=== PATIENT | female | born 1950 | race Caucasian/White ===

== ENCOUNTER → 2017-03-29 | Outpatient (CLI) | payer OTHER | LOC: BMCIMAGING 08:28 | PROVIDERS: ATTEND Orthopaedic Surgery | DX: M17.12 Unilateral primary osteoarthritis, left knee (principal); M25.462 Effusion, left knee; M25.552 Pain in left hip ==

== ENCOUNTER 2017-07-09 14:00 | Inpatient (IN) | payer OTHER ==
--- NOTE | 2017-09-17 06:43 | PDHPUP ---
History & Physical Update H&P update statement: This history and physical update is based on an assessment of the patient which was completed after admission or registration (within 24 hours), but prior to the surgery/procedure. H&P update: no change in patient's condition since H&P completed
--- NOTE | 2017-09-17 06:44 | PDIAF ---
- Diagnosis Diagnosis: left hip djd Code Status: Full Code - Medication Management Discharge Medications: Medications to Continue on Transfer Herbals/Supplements -Info Only 1 ea PO DAILY 02/02/15 [Last Taken 02/20/15] Multivitamins [Tab-A-Jf] 1 each PO DAILY 02/02/15 [Last Taken 02/20/15] Discharge Medications: Refer to the Discharge Home Medication list for PRN reason. - Orders Services needed: Physical Therapy Isolation Type: None Activity/Weight Bearing Restrictions: wbat. anterior hip precautions. dressing changes. may shower without bandage. no soaking or immersion. follow up at two weeks [facility]. seek attn for increasing pain, cp, sob, leg swelling or pain, drainage - Follow Up Care Current Providers and Referrals: Doctor Not,On Staff, MD [Primary Care Provider] -
[2017-09-17] MEDS ORDERED: TRANEXAMIC ACID IV ONE (10:00)
[2017-09-17] MEDS ORDERED: ROPIVACAINE 0.2% 80 MG, EPINEPHrine 0.2 MG, KETOROLAC TROMETHAMINE 30 MG, morphINE 10 M... IU ONE (10:00)
[2017-09-17] MEDS ORDERED: BUPI/epINEPH/KETOROLAC/morphINE IU ONE (10:00)
[2017-09-17] MEDS ORDERED: NS IV ONE (10:00)
[2017-09-17] MEDS ORDERED: ACETAMINOPHEN 325 MG TAB PO ONE (10:07)
[2017-09-17] MEDS ORDERED: FAMOTIDINE 20 MG TAB PO ONE (10:07)
[2017-09-17] MEDS ORDERED: ceFAZolin 2 GM/SWFI 2 GM/20 ML SYR IVP ONE (10:07)
[2017-09-17] MEDS ORDERED: LR 1,000 ML IV ONE (10:08)
[2017-09-17] MEDS ORDERED: LIDOCAINE 1% 2 ML INJ ID PRN (10:08)
[2017-09-17] MEDS ORDERED: CALCIUM CHLORIDE 1 GM/10 ML INJ ONE (10:24)
[2017-09-17] MEDS ORDERED: THROMBIN (BOVINE) 5,000 UNIT VIAL TP ONE (10:24)
[2017-09-17] MEDS ORDERED: ceFAZolin 1 GM/5 ML SYR ONE (10:24)
[2017-09-17] MEDS ORDERED: MIDAZOLAM 2 MG/2 ML VIAL IVP ONE (11:31)
--- NOTE | 2017-09-17 11:33 | PDANEPAE ---
ANE History of Present Illness l hip oa ANE Past Medical History - Cardiovascular History Hx Hypertension: No Hx Arrhythmias: No Hx Chest Pain: No Hx Coronary Artery / Peripheral Vascular Disease: No Hx CHF / Valvular Disease: No Hx Palpitations: Yes Cardiovascular History Comment: INTERMITTENT PALPATATIONS REL TO ANXIETY - Pulmonary History Hx COPD: No Hx Asthma/Reactive Airway Disease: No Hx Recent Upper Respiratory Infection: No Hx Oxygen in Use at Home: No Hx Sleep Apnea: No Sleep Apnea Screening Result - Last Documented: Negative Pulmonary History Comment: ENVIRONMENTAL ALLERGIES. INTERMITTENT COUGH. HX OF NASAL POLYPS - Neurologic History Hx Cerebrovascular Accident: No Hx Seizures: No Hx Dementia: No - Endocrine History Hx Diabetes: No - Renal History Hx Renal Disorders: Yes Renal History Comment: SMALL BLADDER - Liver History Hx Hepatic Disorders: No - Neurological & Psychiatric Hx Hx Neurological and Psychiatric Disorders: No - Cancer History Hx Cancer: No - Congenital Disorder History Hx Congenital Disorders: Yes Congenital History Comment: KNOCKED KNEES - GI History Hx Gastrointestinal Disorders: Yes Gastrointestinal History Comment: GLUTEN FREE DIET. HX OF HEMORRHOIDS - Other Health History Other Health History: OSTEOARTHRITIS. PERM PARTIAL LOWER R - Chronic Pain History Chronic Pain: Yes (LT HIP) - Surgical History Prior Surgeries: DC. RT TOTAL HIP 01/2015. RT TOTAL KNEE 2011. LESLIE. X 2 CARPAL TUNNEL MERCY. TONSILS. TUBAL LIGATION. HEMORRHOIDS ANE Review of Systems Review of Systems: - Exercise capacity METS (RN): 4 METS ANE Patient History - Allergies Allergies/Adverse Reactions: Sulfa (Sulfonamide Antibiotics) Allergy (Severe, Verified 02/02/15 17:32) Hives wheat Allergy (Intermediate, Verified 02/08/15 10:42) GI PROB, BLOATING, DIARRHEA - Home Medications Home Medications: Herbals/Supplements -Info Only 1 ea PO DAILY 02/02/15 [Last Taken 09/11/17] Multivitamins [Tab-A-Jf] 1 each PO DAILY 02/02/15 [Last Taken 09/11/17] - NPO status NPO Since - Liquids (Date): 09/16/17 NPO Since - Liquids (Time): 07:00 NPO Since - Solids (Date): 09/16/17 NPO Since - Solids (Time): 20:30 - Smoking Hx Smoking Status: Former smoker - Family Anes Hx Family Hx Anesthesia Complications: SON- SM TRACHEA, DIFF INTUBATION ANE Labs/Vital Signs - Vital Signs Blood Pressure: 114/73 Heart Rate: 61 Respiratory Rate: 16 O2 Sat (%): 96 Height: 158.75 cm Weight: 66.678 kg ANE Physical Exam - Airway Neck exam: FROM Mallampati Score: Class 2 Mouth exam: normal dental/mouth exam - Pulmonary Pulmonary: no respiratory distress - Cardiovascular Cardiovascular: regular rate and rhythym - ASA Status ASA Status: II ANE Anesthesia Plan Anesthesia Plan: GA w LMA, MAC, spinal
[2017-09-17] MEDS ORDERED: PROPOFOL/EMULSION 500 MG/50 ML BOTTLE IV ONE (11:36)
[2017-09-17] MEDS ORDERED: fentaNYL 100 MCG/2 ML INJ ONE ×2 (12:41→14:35)
[2017-09-17] MEDS ORDERED: DEXAMETHASONE 4 MG/ML VIAL ONE (12:59)
[2017-09-17] MEDS ORDERED: ONDANSETRON 4 MG/2 ML VIAL ONE ×2 (12:59→14:38)
[2017-09-17] MEDS ORDERED: PHENYLEPHRINE HCL 100 MCG/ML SYR ONE (12:59)
[2017-09-17] MEDS ORDERED: NALOXONE HCL 0.4 MG/ML INJ IVP PRN (13:18)
[2017-09-17] MEDS ORDERED: fentaNYL 100 MCG/2 ML INJ IVP PRN (13:18)
[2017-09-17] MEDS ORDERED: HYDROmorphONE/DILAUDID 2 MG/ML INJ IVP PRN (13:18)
[2017-09-17] MEDS ORDERED: PROMETHAZINE HCL 25 MG/ML INJ IVP PRN ×2 (13:18→13:58)
[2017-09-17] MEDS ORDERED: HYDROCODONE/APAP 5/325 TAB PO PRN (13:18)
[2017-09-17] MEDS ORDERED: PROPOFOL 200 MG/20 ML VIAL ONE (13:44)
[2017-09-17] MEDS ORDERED: diphenhydrAMINE 25 MG CAP PO PRN (13:58)
[2017-09-17] MEDS ORDERED: ONDANSETRON DISINTEGRATING 4 MG TAB PO PRN (13:58)
[2017-09-17] MEDS ORDERED: ONDANSETRON 4 MG/2 ML VIAL IVP PRN (13:58)
[2017-09-17] MEDS ORDERED: TEMAZEPAM 15 MG CAP PO PRN (13:58)
[2017-09-17] MEDS ORDERED: METOCLOPRAMIDE 10 MG/2 ML VIAL IVP PRN (13:58)
[2017-09-17] MEDS ORDERED: MAGNESIUM HYDROXIDE 30 ML UDCUP PO PRN (13:58)
[2017-09-17] MEDS ORDERED: DIPHENOXYLATE/ATROPINE LOMOTIL 1 TAB PO PRN (13:58)
[2017-09-17] MEDS ORDERED: POLYETHYLENE GLYCOL 3350 17 GM PKT PO PRN (13:58)
[2017-09-17] MEDS ORDERED: LACTULOSE 20 GM/30 ML UDCUP PO PRN (13:58)
[2017-09-17] MEDS ORDERED: DIAZEPAM 5 MG TAB PO PRN (13:58)
[2017-09-17] MEDS ORDERED: PROMETHAZINE HCL 25 MG SUPPR PR PRN (13:58)
[2017-09-17] MEDS ORDERED: BISACODYL 10 MG SUPP PR PRN (13:58)
[2017-09-17] MEDS ORDERED: ceFAZolin 2 GM/DEXTROSE 100 ML IV SCH (14:00)
[2017-09-17] MEDS ORDERED: LR 1,000 ML IV SCH (14:00)
--- NOTE | 2017-09-17 14:19 | PDMN ---
Medical Necessity Medical necessity: Pt meets IP criteria; [facility] IP only surgery, cpt 35937 L PRISCA
--- NOTE | 2017-09-17 14:22 | POSTANESTH ---
Post Anesthetic Evaluation Cardiovascular Status: Normal, Stable Respiratory Status: Normal, Stable Level of Consciousness/Mental Status: Can Participate in Eval Pain Control: Adequate, Prn Tx Ordered Nausea/Vomiting Control: Adequate, Prn Tx Ordered Complications Possibly Related to Anesthesia: None Noted
[2017-09-17] MEDS: ONDANSETRON 4 MG/2 ML VIAL IVP PRN ×2 (14:40→14:51)
[2017-09-17] MEDS: TRANEXAMIC ACID 650 MG TAB PO SCH ×2 (16:37→21:45)
[2017-09-17] MEDS: ACETAMINOPHEN 325 MG TAB PO SCH (17:55)
[2017-09-17 19:29] VITALS: RESP 16
[2017-09-17] MEDS: oxyCODONE IR 5 MG TAB PO PRN (19:45)
[2017-09-17] MEDS: ceFAZolin 2 GM/SWFI 2 GM/20 ML SYR IVP SCH (19:45)
[2017-09-17] MEDS: ASPIRIN 325 MG TAB PO SCH (21:45)
[2017-09-17] MEDS: SENNOSIDES/DOCUSATE SODIUM TAB PO SCH (21:45)
[2017-09-17] MEDS: FAMOTIDINE 20 MG TAB PO SCH (21:45)
[2017-09-18] MEDS: ACETAMINOPHEN 325 MG TAB PO SCH ×3 (00:14→11:40)
[2017-09-18] MEDS: oxyCODONE IR 5 MG TAB PO PRN ×3 (05:05→13:27)
[2017-09-18] MEDS: ceFAZolin 2 GM/SWFI 2 GM/20 ML SYR IVP SCH (05:05)
[2017-09-18] MEDS: TRANEXAMIC ACID 650 MG TAB PO SCH (05:05)
--- NOTE | 2017-09-18 07:21 | SOAPPROG ---
SOAP Progress Note Assessment/Plan: Assessment: s/p joon Plan: stable dc home wbat dvt precautions 09/18/17 07:19 Subjective: mild lower leg pain no cp or sob Objective: Vital Signs Temp Pulse Resp BP Pulse Ox 36.6 C 76 16 93/69 L 92 09/18/17 04:00 09/18/17 04:00 09/18/17 04:00 09/18/17 04:00 09/18/17 04:00 Laboratory Results 09/18/17 04:31 09/17/17 09/18/17 09/19/17 05:59 05:59 05:59 Intake Total 3120 Output Total 1750 Balance 1370 dressing intact intact pfdfehl toes warm and pink neg homans rafael xrays stable no fx or lucency ICD10 Worksheet Patient Problems: Problems Problem Status Onset Osteoarthritis of hip Acute
--- NOTE | 2017-09-18 07:22 | PDIAF ---
- Diagnosis Diagnosis: left hip djd Code Status: Full Code - Medication Management Discharge Medications: Medications to Continue on Transfer Herbals/Supplements -Info Only 1 ea PO DAILY 02/02/15 [Last Taken 09/11/17] Multivitamins [Multivitamin (*)] 1 each PO DAILY 02/02/15 [Last Taken 09/11/17] Aspirin [Aspirin 325 mg (*)] 325 mg PO DAILY tab 09/18/17 [Last Taken Unknown] Diazepam [Valium 5 MG (*)] 5 mg PO Q6HRS PRN #20 tab 09/18/17 [Last Taken Unknown] oxyCODONE IR [Oxycodone Ir (*)] 5 - 10 mg PO Q3HRS PRN tab 09/18/17 [Last Taken Unknown] Discharge Medications: Refer to the Discharge Home Medication list for PRN reason. - Orders Services needed: Physical Therapy Isolation Type: None Diet Recommendation: no restrictions on diet Diet Texture: Regular Texture Diet Activity/Weight Bearing Restrictions: wbat. anterior hip precautions. dressing changes. may shower without bandage. no soaking or immersion. follow up at two weeks [facility]. seek attn for increasing pain, cp, sob, leg swelling or pain, drainage - Follow Up Care Current Providers and Referrals: Doctor Not,On Staff, [Medical Doctor] - Abdoul Yu MD [Medical Doctor] -
--- NOTE | 2017-09-18 07:36 | GDS ---
[f rep st] DISCHARGE SUMMARY ADMIT DIAGNOSIS: Left hip degenerative joint disease. DISCHARGE DIAGNOSIS: Left hip degenerative joint disease. PROCEDURE: Left total hip arthroplasty. HISTORY OF PRESENT ILLNESS: The patient is a 67-year-old woman who has end-stage arthritis to her le ft hip. Clinical and radiographic are features consistent with this. She has failed all attempts at conservative management. I have recommended total hip replacement. HOSPITAL COURSE: The patient was admitted overnight after uncomplicated total hip arthroplasty. She tolerated the procedure well. She had no complications. At the time of discharge, she is toleratin g oral diet. Pain is well controlled on oral medicines. She is voiding without difficulty. Dressin g is clean, dry, and intact. She has negative Tee's bilaterally. X-rays are stable with anatomic alignment. Serial hematocrit has remained stable. DISCHARGE ACTIVITY: Weightbearing as tolerated. Anterior hip precautions. Daily dressing changes. No soaking or immersion. May shower. SABINO veronica x2 weeks. FOLLOW UP: At 2 weeks. Seek attention for increasing redness, swelling, drainage, discharge. /[id number]/MODL
[2017-09-18] MEDS: SENNOSIDES/DOCUSATE SODIUM TAB PO SCH (08:28)
[2017-09-18] MEDS: ASPIRIN 325 MG TAB PO SCH (08:28)
[2017-09-18] MEDS: FAMOTIDINE 20 MG TAB PO SCH (08:28)
--- NOTE | 2017-09-18 11:47 | ASMTCMCOM ---
CM Note CM Note Notes: Pt medically stable for d/c with [facility]. Orders sent in [employer]. Pt address/phone verified. Date Signed: 09/18/2017 11:47 AM Electronically Signed By:ALEXA Paredes
[2017-09-18 12:52] VITALS: BP 98/61; PULSE 69; TEMP 98.6; O2SAT 97
--- NOTE | 2017-09-19 08:56 | ASDISCHSUM ---
Discharge Information Plan Status:Home with Home Health Medically Cleared to Leave: Discharge Date:09/18/2017 03:44 PM CM D/C Disposition:Home Health Service ADT D/C Disposition:Home, Routine, Self-Care Projected Discharge Date:09/18/2017 11:00 AM Transportation at D/C: Discharge Delay Reason: Follow-Up Date:09/18/2017 11:00 AM Discharge Slot: Final Diagnosis: Placement Information Referral Type:*Home Health Care Services Referral ID:[id number] Provider Name:[facility] [place] Address 1:[address] [place] [address] Address 2: City:[place] Selection Factors: State:[place] Patient Contact Information Contact Name:DESTINEY Relationship:Son Address:[address] Work Phone: City:[place] Alternate Phone: [facility] Code:[place] [address] Email: Financial Information Financial Class:Medicare Primary Plan Desc:MEDICARE INPATIENT Primary Plan Number:[id number] Secondary Plan Desc:[employer] Secondary Plan Number:[id number] Assessment Information [facility] CM Progress Note CM Note CM Note Notes: Pt medically stable for d/c with [facility] Pt address/phone verified. Date Signed: 09/18/2017 11:47 AM Electronically Signed By:ALEXA Paredes Intervention Information
--- NOTE | 2017-09-19 13:52 | GOP ---
[f rep st] OPERATIVE REPORT DATE OF OPERATION: SURGEON: Abdoul Yu MD ACCOUNTS RECEIVABLE ASSISTANT: Bishop Hameed, LOCOMOTIVE REPAIRER DIESEL, MANAGER DIESEL, nursing surgical services director, who is a medical necessity for the entiret y of the case, and Giselle Serrano PA-C PREOPERATIVE DIAGNOSIS: Left hip degenerative joint disease. POSTOPERATIVE DIAGNOSIS: Left hip degenerative joint disease. PROCEDURE PERFORMED: Left total hip arthroplasty. FINDINGS: ESTIMATED BLOOD LOSS: 300 mL. DESCRIPTION OF PROCEDURE: Patient was identified in the preanesthesia area. The left hip clearly de marcated as the operative site with indelible marker. She was given 2 g of Ancef intravenously en ro [place] to the operative suite. In the OR, a spinal anesthetic and sedation was administered. She was p ositioned in the supine position. The pelvis and both lower extremities were sterilely prepped and d raped in the usual fashion. Appropriate time-out procedure was carried out. Attention was first tur quintin to the right hip. A 2 cm incision was made posterior to the anterior iliac crest and carried sha rply through the skin and subcutaneous tissue. 3 pins were then placed and the pelvic reference arra y affixed. An anterior approach was made to the left hip. Thick subcutaneous flaps were elevated. The tensor w as opened in the origin of its fibers and the tensor retracted laterally. The underlying soft tissue was dissected. The vascular structures were identified, ligated, cauterized and transected. The ca psule was exposed both medially and superiorly with elevation with a Hohmann retractor. A T was made in the capsule. Retractors were placed in an intracapsular position. Acetabular check point was th en made. Bony wedge was withdrawn from the femur as was the remnants of the femoral head. There was gross eburnation of bone, consistent with end-stage arthritis. Remnants of the acetabular labrum wer e sharply excised. The bony landmarks were then entered into the computer in standard fashion. Usin g the MAKOplasty protocol, a single reamer with a 50 mm outer diameter was placed (with an opening an gle of 40 degrees and anteversion of 20 degrees) to the appropriate depth. Appropriate cancellous ronny ne was then encountered. The acetabular shell was then impacted in the same position and confirmed t o be fully seated. Two screws were then placed through the superior aspect. A 32 mm inner diameter liner was then placed with a Trident X3 0-degree polyethylene insert. Attention was then turned to the femur. This was delivered through the wound with the use of soft-ti ssue retractors and flexion of the lower leg. The proximal canal was opened. Serial broaching was c arried out to a size 5 stem. A 127-degree neck angle hip stem was then placed. Appropriate reduction was carried out, and ultimately a 32 mm -4 mm neck length Biolox head was selected on a final size 5 stem. Intraoperative fluoroscopy confirmed appropriate position and alignment of the components. The wound was copiously irrigated. The hip was stable to full extension and external rotation to 90 degrees without subluxation. The tissue was reinjecting with a joint cocktail of ropivacaine, morphi ne, Toradol, and epinephrine, and the incision closed using 0 Vicryl, 2-0 Quill, and brenton. Dressi ngs were applied. The patient was awakened and taken to the recovery room in good and stable conditi on. HISTORY OF PRESENT ILLNESS: The patient is a 67-year-old woman with end-stage arthritis to her left hip. Clinical and radiographic features are consistent with this. She has failed all attempts at co nservative management. I have therefore recommended total hip replacement. I have outlined the surg ical procedure, risks, benefits, and alternatives at length. She wished to proceed. Written consent was signed and placed in the patient's chart. TOTAL TOURNIQUET TIME: None. COMPLICATIONS: None. SPECIMENS TO PATHOLOGY: The femoral head. IMPLANTS: The Miguel Angel Tritanium acetabular shell size 50 mm, X3 0-degree polyethylene insert 32 mm, two 6.5 mm cancellous bone screws, an Accolade II 127-degree neck angle hip stem size 5, Biolox delta heads 32 mm -4 mm neck length. DISPOSITION: To the recovery room, then floor. She will follow a standard recovery. /[id number]/MODL
== END 2017-09-18 15:44 | disposition home or self-care (01) | DRG 470 ==
LOC: F3N 09-17 09:52
PROVIDERS: ADMIT Orthopaedic Surgery; ATTEND Orthopaedic Surgery
PROC: 0SRB04Z Replacement of Left Hip Joint with Ceramic on Polyethylene Synthetic Substitute, Open Approach (ICD-10-PCS; principal; 2017-09-17 11:45)
DX: M16.12 Unilateral primary osteoarthritis, left hip (principal); M81.0 Age-related osteoporosis without current pathological fracture; E78.5 Hyperlipidemia, unspecified; Z96.641 Presence of right artificial hip joint; Z96.651 Presence of right artificial knee joint
CPT/HCPCS: 97116-GP; 97161-GP; 97165-GO; C1713; G8978-GP-CI; G8979-GP-CI; G8980-GP-CI; G8987-GO-CI; G8988-GO-CI; G8989-GO-CI; J0171; J0690; J1100; J1885; J2250; J2270; J2370; J2405; J2704; J2795; J3010

== ENCOUNTER → 2017-09-10 | Outpatient (CLI) | payer OTHER | LOC: FIMAGING 10:05 | PROVIDERS: ATTEND Physician Assistant | DX: Z01.818 Encounter for other preprocedural examination (principal); M16.12 Unilateral primary osteoarthritis, left hip ==

== ENCOUNTER → 2017-12-13 | Outpatient (CLI) | payer OTHER | LOC: BMCIMAGING 08:43 | PROVIDERS: ATTEND Orthopaedic Surgery | DX: Z47.1 Aftercare following joint replacement surgery (principal); Z96.642 Presence of left artificial hip joint ==

== ENCOUNTER → 2018-03-14 | Outpatient (CLI) | payer OTHER | LOC: BMCIMAGING 09:33 | PROVIDERS: ATTEND Orthopaedic Surgery | DX: Z47.1 Aftercare following joint replacement surgery (principal); Z96.642 Presence of left artificial hip joint ==

== ENCOUNTER → 2018-09-09 | Outpatient (CLI) | payer OTHER | LOC: BMCIMAGING 09:38 | PROVIDERS: ATTEND Orthopaedic Surgery | DX: Z47.1 Aftercare following joint replacement surgery (principal); Z96.642 Presence of left artificial hip joint ==